=== PATIENT | female | born 1975 | race American Indian/Alaskan Native ===

== ENCOUNTER 2019-09-25 22:29 | Emergency (ER) | payer SELFPAY ==
[2019-09-25 23:14] VITALS: BP 165/98
[2019-09-26 01:31] LABS: Bacteria,Urine 1+ /HPF (Negative); Bilirubin,Urine NEG (Negative); Blood,Urine LG (Negative); Color,Urine Yellow (Yellow); Mucus,Urine FEW /HPF; Protein,Urine <15 mg/dL mg/dL (Negative); Urobilinogen,Urine < 2.0 mg/dL (<2.0)
[2019-09-26 01:40] LABS: HCG Qualitative,Urine Negative (Negative)
[2019-09-26] MEDS: IBUPROFEN 600 MG TAB PO ONE (02:42)
[2019-09-26] MEDS: predniSONE 20 MG TAB PO ONE (02:42)
[2019-09-26] MEDS: LIDOCAINE VISCOUS 2% 15 ML ORAL LIQD PO ONE (02:43)
--- NOTE | 2019-09-26 05:25 | Emergency Department Report ---
ED General Adult HPI - General Chief complaint: Abdominal Pain Stated complaint: SORE THROAT STOMACH PAIN Time Seen by Provider: 09/26/19 02:52 Source: patient Mode of arrival: Ambulatory Limitations: No Limitations - History of Present Illness Initial comments: Patient is a A0 43-year-old -[place] Citizen female with no past medical history who presents to the ED with complaint of acute onset persistent severe sore throat and pelvic pain after sexual intercourse for the last 2 days. Patient states that she had unprotected sexual intercourse with her regular sexual partner of 1 year and that afterwards she started having suprapubic pain and sore throat. Patient admits to having oral and vaginal sexual intercourse. Patient denies fever, chills, nausea, vomiting, vaginal bleeding, vaginal discharge, dysuria, urinary frequency and urgency, headache, chest pain, shortness of breath, nasal and sinus congestion, cough, fever and chills or d iarrhea. MD Complaint: Sore throat; Pelvic pain after sexual intercourse -: Sudden, days(s) (2) Location: mouth, abdomen Radiation: non-radiation Severity scale (0 -10): 10 Quality: aching, sharp Consistency: constant Improves with: none Worsens with: eating, movement Associated Symptoms: denies other symptoms. denies: confusion, chest pain, cough, diaphoresis, fever/chills, headaches, malaise, nausea/vomiting, seizure, shortness of breath, syncope, weakness, other Treatments Prior to Arrival: none - Related Data Previous Rx's Medication Instructions Recorded Last Taken Type Doxycycline Hyclate 100 mg PO Q12H #20 tablet. 09/26/19 Unknown Rx Ibuprofen [Motrin] 800 mg PO Q8HR PRN #24 tablet 09/26/19 Unknown Rx Lidocaine Viscous 2% 10 ml PO Q6H PRN #120 ml 09/26/19 Unknown Rx Allergies Allergy/AdvReac Type Severity Reaction Status Date / Time No Known Allergies Allergy Unverified 09/26/19 00:12 ED Review of Systems ROS: Stated complaint: SORE THROAT STOMACH PAIN Other details as noted in HPI Constitutional: denies: chills, fever Eyes: denies: eye pain, eye discharge, vision change ENT: throat pain. denies: ear pain Respiratory: denies: cough, shortness of breath, wheezing Cardiovascular: denies: chest pain, palpitations Endocrine: no symptoms reported Gastrointestinal: abdominal pain (suprapubic pain). denies: nausea, diarrhea Genitourinary: denies: urgency, dysuria, discharge Musculoskeletal: denies: back pain, joint swelling, arthralgia Skin: denies: rash, lesions Neurological: denies: headache, weakness, paresthesias Psychiatric: denies: anxiety, depression Hematological/Lymphatic: denies: easy bleeding, easy bruising ED Past Medical Hx - Past Medical History Previous Medical History?: Yes Hx Asthma: Yes - Surgical History Past Surgical History?: Yes Additional Surgical History: . Tubal ligation - Social History Smoking Status: Never Smoker Substance Use Type: None - Medications Home Medications: Home Medications Medication Instructions Recorded Confirmed Last Taken Type Doxycycline Hyclate 100 mg PO Q12H #20 tablet. 09/26/19 Unknown Rx Ibuprofen [Motrin] 800 mg PO Q8HR PRN #24 tablet 09/26/19 Unknown Rx Lidocaine Viscous 2% 10 ml PO Q6H PRN #120 ml 09/26/19 Unknown Rx ED Physical Exam - General Limitations: No Limitations General appearance: alert, in no apparent distress - Head Head exam: Present: atraumatic, normocephalic, normal inspection - Eye Eye exam: Present: normal appearance, PERRL, EOMI Pupils: Present: normal accommodation - ENT ENT exam: Present: normal exam, mucous membranes moist, TM's normal bilaterally, normal external ear exam, other (Mildly erythematous oropharynx) - Neck Neck exam: Present: normal inspection, full ROM, lymphadenopathy - Respiratory Respiratory exam: Present: normal lung sounds bilaterally. Absent: respiratory distress, wheezes, rales, rhonchi, chest wall tenderness, accessory muscle use - Cardiovascular Cardiovascular Exam: Present: regular rate, normal rhythm, normal heart sounds. Absent: systolic murmur, diastolic murmur, rubs, gallop - GI/Abdominal GI/Abdominal exam: Present: soft, normal bowel sounds. Absent: tenderness, hyperactive bowel sounds - Extremities Exam Extremities exam: Present: normal inspection, full ROM, normal capillary refill - Back Exam Back exam: Present: normal inspection, full ROM. Absent: CVA tenderness (L), muscle spasm, vertebral tenderness - Neurological Exam Neurological exam: Present: alert, oriented X3, CN II-XII intact, normal gait, reflexes normal - Psychiatric Psychiatric exam: Present: normal affect, normal mood - Skin Skin exam: Present: warm, dry, intact, normal color. Absent: rash ED Course Vital Signs 09/25/19 23:07 Temperature 98.3 F Pulse Rate 75 Respiratory 20 Rate Blood Pressure 165/98 O2 Sat by Pulse 98 Oximetry ED Medical Decision Making - Medical Decision Making This is a 43-year-old female who presented to the ED with complaint of acute onset persistent severe sore throat with dysphagia, and suprapubic pain after unprotected oral and vaginal sexual intercourse 2 days ago. In the ED, patient is alert and oriented x3 and is not in distress. Physical exam is unremarkable. Rapid strep test is negative and urinalysis shows significant blood in the urine consistent with menstrual cycle. Wet prep test show significant Gardnerella vaginalis in the vaginal swab. Patient was treated for pain and on reevaluation, patient's pain is well controlled with medications. Patient was discharged home on medications and advised to follow-up with her primary care physician in 5 to 7 days for reevaluation or return to the ED immediately if symptoms get worse. - Differential Diagnosis Acute pharyngitis; UTI; PID; Dysmenorrhea; Ovarian cyst; bacterial vaginosi Critical care attestation.: If time is entered above; I have spent that time in minutes in the direct care of this critically ill patient, excluding procedure time. ED Disposition Clinical Impression: Acute pelvic pain, female, Severe dysmenorrhea, Bacterial vaginosis Acute pharyngitis Qualifiers: Pharyngitis/tonsillitis etiology: unspecified etiology Qualified Code(s): J02.9 - Acute pharyngitis, unspecified Disposition: DC-01 TO HOME OR SELFCARE Is pt being admited?: No Does the pt Need Aspirin: No Condition: Stable Instructions: Bacterial Vaginosis (ED), Dysmenorrhea (ED), Pharyngitis (ED) Additional Instructions: Take medication with food, drink plenty fluids and follow-up with your primary care physician in 5 to 7 days for reevaluation. Return to the ED immediately if symptoms get worse. Prescriptions: Doxycycline Hyclate 100 mg PO Q12H #20 tablet. Lidocaine Viscous 2% 10 ml PO Q6H PRN #120 ml PRN Reason: Pain , Severe (7-10) Ibuprofen [Motrin] 800 mg PO Q8HR PRN #24 tablet PRN Reason: Pain , Severe (7-10) Referrals: [facility] [Outside] - 3-5 Days Forms: STI Treatment and Prevention Time of Disposition: 05:56 Print Language: SAMI
== END 2019-09-26 06:05 | disposition home or self-care (01) ==
LOC: ED 22:29
DX: R10.2 Pelvic and perineal pain (principal); N76.0 Acute vaginitis; B96.89 Other specified bacterial agents as the cause of diseases classified elsewhere; N94.6 Dysmenorrhea, unspecified; J02.9 Acute pharyngitis, unspecified; J45.909 Unspecified asthma, uncomplicated; Z98.51 Tubal ligation status; Z79.1 Long term (current) use of non-steroidal anti-inflammatories (NSAID); Z79.899 Other long term (current) drug therapy
CPT/HCPCS: 81001; 81025; 87116; 87210; 87430; 99284; J7512

== ENCOUNTER 2019-09-30 16:06 | Emergency (ER) | payer SELFPAY ==
--- NOTE | 2019-09-30 18:25 | Event Note ---
ED Screening Note ED Screening Note: states she has a productive cough states she has chest pain only with coughing no fever no n/v/d PMHx asthma, HTN no allergy to meds LNMP: 09/26/2019 had recent urine preg test which was negative This initial assessment/diagnostic orders/clinical plan/treatment(s) is/are subject to change based on patients health status, clinical progression and re- assessment by fellow clinical providers in the ED. Further treatment and workup at subsequent clinical providers discretion. Patient/guardian urged not to elope from the ED as their condition may be serious if not clinically assessed and managed. Initial orders include: CXR
--- NOTE | 2019-09-30 19:07 | XRay Report ---
CHEST 2 VIEWS INDICATION / CLINICAL INFORMATION: productive cough. COMPARISON: None available. FINDINGS: SUPPORT DEVICES: None. HEART / MEDIASTINUM: No significant abnormality. LUNGS / PLEURA: No significant pulmonary or pleural abnormality. No pneumothorax. ADDITIONAL FINDINGS: No significant additional findings. IMPRESSION: 1. No acute findings. Signer Name: Rich Alegre MD Signed: 09/30/2019 7:02 PM Workstation Name: [id number]
[2019-09-30 20:13] VITALS: BP 142/77
--- NOTE | 2019-09-30 21:31 | Emergency Department Report ---
- General Chief Complaint: Chest Pain Stated Complaint: CP/COUGH/SOB Time Seen by Provider: 09/30/19 18:23 Source: patient Mode of arrival: Ambulatory Limitations: No Limitations - History of Present Illness MD Complaint: cough, rhinorrhea, nasal congestion -: Gradual Quality: dull Consistency: constant Improves With: nothing Worsens With: nothing Associated Symptoms: rhinorrhea, nasal congestion, cough, shortness of breath - Related Data Previous Rx's Medication Instructions Recorded Last Taken Type Doxycycline Hyclate 100 mg PO Q12H #20 tablet. 09/26/19 Unknown Rx Ibuprofen [Motrin] 800 mg PO Q8HR PRN #24 tablet 09/26/19 Unknown Rx Lidocaine Viscous 2% 10 ml PO Q6H PRN #120 ml 09/26/19 Unknown Rx Albuterol INH(or & Nicu Only) 2 puff IH QID PRN #1 inhalation 09/30/19 Unknown Rx [ProAir HFA Inhaler] Montelukast [Singulair] 10 mg PO QPM #14 tablet 09/30/19 Unknown Rx guaiFENesin/CODEINE [Robitussin AC] 5 ml PO Q6H PRN #120 ml 09/30/19 Unknown Rx predniSONE [Deltasone] 50 mg PO QDAY #5 tab 09/30/19 Unknown Rx Allergies Allergy/AdvReac Type Severity Reaction Status Date / Time No Known Allergies Allergy Unverified 09/26/19 00:12 ED Review of Systems ROS: Stated complaint: CP/COUGH/SOB Other details as noted in HPI Comment: All other systems reviewed and negative ED Past Medical Hx - Past Medical History Hx Asthma: Yes - Surgical History Additional Surgical History: . Tubal ligation - Social History Smoking Status: Never Smoker Substance Use Type: None - Medications Home Medications: Home Medications Medication Instructions Recorded Confirmed Last Taken Type Doxycycline Hyclate 100 mg PO Q12H #20 tablet. 09/26/19 Unknown Rx Ibuprofen [Motrin] 800 mg PO Q8HR PRN #24 tablet 09/26/19 Unknown Rx Lidocaine Viscous 2% 10 ml PO Q6H PRN #120 ml 09/26/19 Unknown Rx Albuterol INH(or & Nicu Only) 2 puff IH QID PRN #1 inhalation 09/30/19 Unknown Rx [ProAir HFA Inhaler] Montelukast [Singulair] 10 mg PO QPM #14 tablet 09/30/19 Unknown Rx guaiFENesin/CODEINE [Robitussin AC] 5 ml PO Q6H PRN #120 ml 09/30/19 Unknown Rx predniSONE [Deltasone] 50 mg PO QDAY #5 tab 09/30/19 Unknown Rx ED Physical Exam - General Limitations: No Limitations General appearance: alert, in no apparent distress - Head Head exam: Present: atraumatic, normocephalic - Eye Eye exam: Present: normal appearance, PERRL, EOMI Pupils: Present: normal accommodation - ENT ENT exam: Present: normal exam, normal orophraynx, mucous membranes moist - Neck Neck exam: Present: normal inspection, full ROM. Absent: meningismus, lymphadenopathy - Respiratory Respiratory exam: Present: normal lung sounds bilaterally. Absent: respiratory distress, wheezes, rales, rhonchi - Cardiovascular Cardiovascular Exam: Present: regular rate, normal rhythm. Absent: bradycardia, tachycardia, systolic murmur, diastolic murmur, rubs, gallop - GI/Abdominal GI/Abdominal exam: Present: soft, normal bowel sounds. Absent: tenderness, guarding, hypoactive bowel sounds, organomegaly, mass, bruit, pulsatile mass - Extremities Exam Extremities exam: Present: normal inspection, full ROM, normal capillary refill - Back Exam Back exam: Present: normal inspection. Absent: CVA tenderness (R), CVA tenderness (L) - Neurological Exam Neurological exam: Present: alert, oriented X3, CN II-XII intact - Psychiatric Psychiatric exam: Present: normal affect, normal mood. Absent: flat affect, manic - Skin Skin exam: Present: warm, dry, intact, normal color. Absent: rash, cyanosis, erythema, urticaria, pallor, abrasion ED Course Vital Signs 09/30/19 09/30/19 09/30/19 16:12 18:23 19:58 Temperature 98.0 F 98.0 F 98.2 F Pulse Rate 91 H 91 H 75 Respiratory 18 18 16 Rate Blood Pressure 166/98 142/77 Blood Pressure 166/98 [Right] O2 Sat by Pulse 100 100 100 Oximetry Critical care attestation.: If time is entered above; I have spent that time in minutes in the direct care of this critically ill patient, excluding procedure time. ED Disposition Clinical Impression: Cough, Asthma, Bronchitis Disposition: DC-01 TO HOME OR SELFCARE Is pt being admited?: No Does the pt Need Aspirin: No Condition: Stable Instructions: Asthma (ED), Chronic Bronchitis (ED) Prescriptions: predniSONE [Deltasone] 50 mg PO QDAY #5 tab Albuterol INH(or & Nicu Only) [ProAir HFA Inhaler] 2 puff IH QID PRN #1 inhalation PRN Reason: Shortness Of Breath guaiFENesin/CODEINE [Robitussin AC] 5 ml PO Q6H PRN #120 ml PRN Reason: Cough Montelukast [Singulair] 10 mg PO QPM #14 tablet Referrals: PRIMARY CAREMD [Primary Care Provider] - 3-5 Days YUNG FRANCO MD [Staff Physician] - 3-5 Days
== END 2019-09-30 21:32 | disposition home or self-care (01) ==
LOC: ED 16:06
DX: J40 Bronchitis, not specified as acute or chronic (principal); J45.909 Unspecified asthma, uncomplicated; Z98.51 Tubal ligation status; Z98.890 Other specified postprocedural states; Z79.899 Other long term (current) drug therapy
CPT/HCPCS: 71046; 99283

== ENCOUNTER 2021-10-25 10:50 | Emergency (ER) | payer SELFPAY ==
[2021-10-25 11:33] VITALS: BP 160/80
[2021-10-25] MEDS ORDERED: LIDOCAINE-MPF (1%) 10 MG/1 ML VIAL 5 ML INFILTRATI ONE (12:24)
[2021-10-25] MEDS ORDERED: IBUPROFEN 800 MG TAB PO ONE (12:24)
--- NOTE | 2021-10-25 12:24 | Emergency Department Report ---
ED General Adult HPI - General Chief complaint: Extremity Injury, Lower Stated complaint: RT HIP PAIN/DISCHARGE/BURNING Time Seen by Provider: 10/25/21 11:43 Source: patient Mode of arrival: Ambulatory Limitations: No Limitations - History of Present Illness Initial comments: 45-year-old female who denies any significant past medical history presents to the ER today with multiple complaints. Patient complains of right hip pain, vaginal discharge and dysuria. Patient states that for the past 4 days she has been having pain in her right hip. She does not recall any injury or strenuous activity. She states that the pain radiates down into her lateral thigh with some numbness in that area intermittently. She states that the pain is worse with movement of the hip and with ambulation. She reports no associated lower back pain, abdominal pain, bowel or bladder incontinence, lower extremity weakness, saddle anesthesia. She states that she has never had pain in the hip before. She has been taking 800 mg ibuprofen with some relief of her pain. Patient also complains of a white fishy odor vaginal discharge which started 7 days ago after she ended her last menstrual cycle. She states that she only has 1 partner, but she knows that he has other partners. She also reports dysuria but no hematuria. She states that her last menstrual cycle was from the to 21 October. MD Complaint: Right hip pain/vag discharge/dysuria -: days(s) - Related Data Previous Rx's Medication Instructions Recorded Last Taken Type Lidocaine Viscous 2% 10 ml PO Q6H PRN #120 ml 09/26/19 Unknown Rx Albuterol Mdi (or & Nicu Only) 2 puff IH QID PRN #1 inhalation 09/30/19 Unknown Rx [ProAir HFA Inhaler] Montelukast [Singulair] 10 mg PO QPM #14 tablet 09/30/19 Unknown Rx guaiFENesin/CODEINE [Robitussin AC] 5 ml PO Q6H PRN #120 ml 09/30/19 Unknown Rx predniSONE [Deltasone] 50 mg PO QDAY #5 tab 09/30/19 Unknown Rx Doxycycline Hyclate 100 mg PO Q12H #20 tablet. 10/25/21 Unknown Rx Ibuprofen [Motrin 800 MG tab] 800 mg PO Q8HR PRN #24 tablet 10/25/21 Unknown Rx metroNIDAZOLE [Flagyl] 500 mg PO Q12HR #14 tab 10/25/21 Unknown Rx Allergies Allergy/AdvReac Type Severity Reaction Status Date / Time No Known Allergies Allergy Unverified 09/26/19 00:12 ED Review of Systems ROS: Stated complaint: RT HIP PAIN/DISCHARGE/BURNING Other details as noted in HPI Comment: All other systems reviewed and negative Constitutional: denies: chills, fever Eyes: denies: eye pain, eye discharge, vision change ENT: denies: ear pain, throat pain Respiratory: denies: cough, shortness of breath, SOB with exertion, SOB at rest, wheezing Cardiovascular: denies: chest pain, palpitations, dyspnea on exertion, edema, syncope, paroxysmal nocturnal dyspnea Gastrointestinal: denies: abdominal pain, nausea, vomiting, diarrhea, constipation, hematemesis, hematochezia Genitourinary: dysuria, discharge Musculoskeletal: arthralgia Skin: denies: rash, lesions, change in color, change in hair/nails, pruritus Neurological: denies: headache, weakness, numbness, paresthesias, confusion, abnormal gait, vertigo Psychiatric: denies: anxiety, depression, auditory hallucinations, visual hallucinations, homicidal thoughts, suicidal thoughts Hematological/Lymphatic: denies: easy bleeding, easy bruising, swollen glands ED Past Medical Hx - Past Medical History Hx Asthma: Yes - Surgical History Additional Surgical History: . Tubal ligation - Social History Smoking Status: Never Smoker Substance Use Type: None - Medications Home Medications: Home Medications Medication Instructions Recorded Confirmed Last Taken Type Lidocaine Viscous 2% 10 ml PO Q6H PRN #120 ml 09/26/19 Unknown Rx Albuterol Mdi (or & Nicu Only) 2 puff IH QID PRN #1 inhalation 09/30/19 Unknown Rx [ProAir HFA Inhaler] Montelukast [Singulair] 10 mg PO QPM #14 tablet 09/30/19 Unknown Rx guaiFENesin/CODEINE [Robitussin AC] 5 ml PO Q6H PRN #120 ml 09/30/19 Unknown Rx predniSONE [Deltasone] 50 mg PO QDAY #5 tab 09/30/19 Unknown Rx Doxycycline Hyclate 100 mg PO Q12H #20 tablet. 10/25/21 Unknown Rx Ibuprofen [Motrin 800 MG tab] 800 mg PO Q8HR PRN #24 tablet 10/25/21 Unknown Rx metroNIDAZOLE [Flagyl] 500 mg PO Q12HR #14 tab 10/25/21 Unknown Rx ED Physical Exam - General Limitations: No Limitations General appearance: alert, in no apparent distress, obese - Head Head exam: Present: atraumatic, normocephalic - Eye Eye exam: Present: normal appearance, PERRL, EOMI Pupils: Present: normal accommodation - Neck Neck exam: Present: normal inspection. Absent: meningismus - Respiratory Respiratory exam: Present: normal lung sounds bilaterally. Absent: respiratory distress, wheezes, rales, rhonchi, stridor - Cardiovascular Cardiovascular Exam: Present: regular rate, normal rhythm, normal heart sounds - GI/Abdominal GI/Abdominal exam: Present: soft. Absent: distended, tenderness, guarding, rebound - Expanded Lower Extremity Exam Right Hip exam: Present: tenderness (lateral right hip ). Absent: normal inspection, full ROM (decrease due to pain), swelling, abrasion, laceration, ecchymosis, crepidus, dislocation, erythema, external rotation, internal rotation, shortening, pelvic stability Neuro vascular tendon exam: Present: no vascular compromise. Absent: pulse deficit, abnormal cap refill, motor deficit, sensory deficit Gait: Positive: observed and limited by pain - Back Exam Back exam: Present: normal inspection, full ROM. Absent: tenderness, paraspinal tenderness, vertebral tenderness - Neurological Exam Neurological exam: Present: alert, oriented X3, CN II-XII intact - Psychiatric Psychiatric exam: Present: normal affect, normal mood - Skin Skin exam: Present: intact ED Course Vital Signs 10/25/21 11:31 Temperature 98 F Pulse Rate 70 Respiratory 16 Rate Blood Pressure 160/80 [Left] O2 Sat by Pulse 100 Oximetry ED Medical Decision Making - Radiology Data Radiology results: report reviewed Patient: TAJ BRUSH MR#: [id number] : 1975 Acct:[id number] Age/Sex: 45 / F ADM Date: 10/25/21 Loc: ED Attending Dr: Ordering Physician: ROSEMARIE HANSEN Date of Service: 10/25/21 Procedure(s): XR hip 2-3V RT Accession Number(s): [id number] cc: ROSEMARIE HANSEN Fluoro Time In Minutes: XR hip 2-3V RT INDICATION / CLINICAL INFORMATION: Pain. COMPARISON: None available. FINDINGS: BONES/JOINT(S): No acute fracture or subluxation. No significant degenerative changes. SOFT TISSUES: No significant abnormality. ADDITIONAL FINDINGS: None. Signer Name: Steve Hwang MD Signed: 10/25/2021 1:22 PM Workstation Name: [id number] Transcribed By: SEKOU Dictated By: Steve Hwang MD Electronically Authenticated By: Steve Hwang MD Signed Date/Time: 10/25/211321 DD/ 20 TD/TT: - Medical Decision Making Xray of hip shows nothing acute. UA concerning UTI. Discussed lab results with patient. She will be treated prophylactically for gonorrhea and chlamydia and did receive an IM dose of Rocephin in the ER. She will be discharged home on Flagyl for possible BV given her history of fishy odor, and has prescription for doxycycline. Patient also be given prescription for ibuprofen but recommend she follows up with the primary care doctor and water quality specialist for further evaluation of her right hip pain. Patient is not toxic, not ill-appearing, not in any significant distress. She has a soft nontender abdomen. She is neurologically intact. Patient expressed understanding of instructions and agree with plan. Patient was stable at time of discharge. Critical care attestation.: If time is entered above; I have spent that time in minutes in the direct care of this critically ill patient, excluding procedure time. ED Disposition Clinical Impression: Vaginal discharge, Right hip pain, UTI (urinary tract infection), Concern about STD in female without diagnosis Disposition: 01 HOME / SELF CARE / HOMELESS Is pt being admited?: No Does the pt Need Aspirin: No Condition: Stable Instructions: Hip Pain, Vaginitis, [id number], Urinary Tract Infection, Adult Additional Instructions: Take the Flagyl and the doxycycline as prescribed. Do not drink alcohol while taking antibiotics and recommend that you take both antibiotics with food. Take the ibuprofen to help your hip pain but I do recommend that you follow-up with a water quality specialist for further evaluation especially if he continues. Since you were treated prophylactically here for gonorrhea chlamydia your partner should also be treated. Recommend no sexual intercourse for about 7 days. Return to the ER if your symptoms changes or worsens in any way. Prescriptions: Doxycycline Hyclate 100 mg PO Q12H #20 tablet. metroNIDAZOLE [Flagyl] 500 mg PO Q12HR #14 tab Ibuprofen [Motrin 800 MG tab] 800 mg PO Q8HR PRN #24 tablet PRN Reason: Pain , Severe (7-10) Referrals: YUNG FRANCO MD [Primary Care Provider] - 3-5 Days Forms: Work/School Release Form(ED) Time of Disposition: 13:48
[2021-10-25 12:47] LABS: HCG Qualitative,Urine Negative (Negative)
[2021-10-25 12:53] LABS: Bilirubin,Urine NEG (Negative); Blood,Urine NEG (Negative); Color,Urine Yellow (Yellow); Mucus,Urine FEW /HPF; Protein,Urine <15 mg/dL mg/dL (Negative); Urobilinogen,Urine < 2.0 mg/dL (<2.0)
--- NOTE | 2021-10-25 13:26 | XRay Report ---
XR hip 2-3V RT INDICATION / CLINICAL INFORMATION: Pain. COMPARISON: None available. FINDINGS: BONES/JOINT(S): No acute fracture or subluxation. No significant degenerative changes. SOFT TISSUES: No significant abnormality. ADDITIONAL FINDINGS: None. Signer Name: Steve Hwang MD Signed: 10/25/2021 1:22 PM Workstation Name: [id number]
== END 2021-10-25 14:00 | disposition home or self-care (01) ==
LOC: ED 10:50
DX: N39.0 Urinary tract infection, site not specified (principal); M25.551 Pain in right hip; N89.8 Other specified noninflammatory disorders of vagina; Z20.2 Contact with and (suspected) exposure to infections with a predominantly sexual mode of transmission; J45.909 Unspecified asthma, uncomplicated
CPT/HCPCS: 73502; 81001; 81025; 96372; 99283; J0696; J3490